=== PATIENT | male | born 1940 | race Caucasian/White ===

== ENCOUNTER → 2016-04-03 | Outpatient (CLI) | payer MEDICARE ==
[~2016-04-03] MED LIST: ALDACTONE25 MG PO; AMIODARONE HYD200 MG PO; APAP/HYDROCODON1 T46 PO; ASPIRIN81 MG PO; CEFTIN500 MG PO; COREG3.125 MG PO; COREG6.25 MG PO; Carafate1 GM PO; ELIGARD; ELIQUIS5 M1 PO; GLUCOPHAGE500 MG PO; GLYBURIDE5 MG PO; HUMULIN R100 U/ML; HUMULIN R100 U/ML SC; IMDUR SA60 M1 PO; K-POTASSIUM CH20 ME1 PO; KEFLEX 500 MG E2 CAP PO; LASIX20 MG PO; LEVEMIR100 U/ML SC; MAG-OX 400400 MG PO; MEGA MEN VITAMIN; METAMUCIL1 PDR PO; NOVOLOG10 ML SC; PLAVIX75 MG PO; PRILOSEC20 MG PO; Percocet 325 MG1 TAB PO; SIMVASTATIN20 MG PO; THERAGRAN1 TA2 PO; VICODIN 5/500 505 MG PO; ZESTRIL,PRINIVI10 MG PO
[2016-04-03 14:20] LABS: BASO % 0.6 % (0.0-1.0); EOS % 0.6 % (1.0-4.0); HEMATOCRIT 36.9 % (42.0-52.0); HEMOGLOBIN 11.4 g/dl (14.0-18.0); LYMPH # 1.3 10*3/uL (1.3-4.4); LYMPH % 19.9 % (27.0-41.0); MEAN CORPUSCULAR HGB 26.6 pg (27.0-31.0); MEAN CORPUSCULAR HGB CONC 30.9 g/dl (33.0-37.0); MEAN PLATELET VOLUME 10.7 fl (9.6-12.3); MONO # 0.4 10*3/uL (0.1-1.0); MONO % 5.4 % (3.0-9.0); NEUT # 4.8 10*3/uL (2.3-7.9); NEUT % 72.9 % (47.0-73.0); PLATELET COUNT AUTOMATED 156 10*3/uL (130-400); RED BLOOD COUNT 4.29 10*6/uL (4.50-5.90); RED CELL DISTRI WIDTH 15.1 % (0-14.5); WHITE BLOOD COUNT 6.6 10*3/uL (4.8-10.8)
[2016-04-03 14:35] LABS: ALBUMIN 3.5 gm/dl (3.1-4.5); BILIRUBIN, TOTAL 0.4 mg/dl (0.2-1.0); POTASSIUM 4.8 mmol/L (3.5-5.1); TOTAL PROTEIN 7.7 gm/dL (6.4-8.2)
== END | disposition home or self-care (01) ==
LOC: LAB 13:33 → RAD 13:33
PROVIDERS: Nurse Practitioner
DX: M54.5 Low back pain (principal)

== ENCOUNTER → 2016-04-20 | Outpatient (CLI) | payer MEDICARE | END | disposition home or self-care (01) | LOC: RAD 12:22 | DX: M54.5 Low back pain (principal) ==

== ENCOUNTER 2016-08-30 00:49 | Emergency (ER) | payer MEDICARE ==
[~2016-08-30] VITALS: Ht 172.7 cm; Wt 67.6 kg
[2016-08-30] MEDS ORDERED: COLACE100 MG PO (01:05)
[2016-08-30] MEDS ORDERED: LASIX20 MG PO (01:09)
[2016-08-30] MEDS ORDERED: LIPITOR40 MG PO (01:12)
[2016-08-30] MEDS ORDERED: METFORMIN500 MG PO (01:14)
[2016-08-30] MEDS ORDERED: BENADRYL25 M2 PO (01:15)
[2016-08-30 01:25] LABS: BASO % 0.4 % (0.0-1.0); EOS % 0.6 % (1.0-4.0); HEMATOCRIT 35.6 % (42.0-52.0); HEMOGLOBIN 11.7 g/dl (14.0-18.0); LYMPH % 19.2 % (27.0-41.0); MEAN CELL VOLUME 84.6 fl (80.0-94.0); MEAN CORPUSCULAR HGB 27.8 pg (27.0-31.0); MEAN CORPUSCULAR HGB CONC 32.9 g/dl (33.0-37.0); MONO # 0.4 10*3/uL (0.1-1.0); MONO % 7.8 % (3.0-9.0); NEUT # 3.7 10*3/uL (2.3-7.9); NEUT % 71.6 % (47.0-73.0); PLATELET COUNT AUTOMATED 129 10*3/uL (130-400); RED BLOOD COUNT 4.21 10*6/uL (4.50-5.90); RED CELL DISTRI WIDTH 14.2 % (0-14.5); WHITE BLOOD COUNT 5.1 10*3/uL (4.8-10.8)
[2016-08-30 01:40] LABS: ALBUMIN 3.5 gm/dl (3.1-4.5); BILIRUBIN, TOTAL 0.4 mg/dl (0.2-1.0); POTASSIUM 4.9 mmol/L (3.5-5.1); TOTAL PROTEIN 7.8 gm/dL (6.4-8.2)
[2016-08-30 04:54] VITALS: BP 121/60
[2016-08-30 06:32] LABS: POTASSIUM 4.3 mmol/L (3.5-5.1)
== END 2016-08-30 07:27 | disposition home or self-care (01) ==
LOC: ED 00:49
PROVIDERS: Emergency Medicine
DX: R73.9 Hyperglycemia, unspecified (principal); E86.0 Dehydration; N28.9 Disorder of kidney and ureter, unspecified; I25.10 Atherosclerotic heart disease of native coronary artery without angina pectoris; K21.9 Gastro-esophageal reflux disease without esophagitis; I25.2 Old myocardial infarction; E11.65 Type 2 diabetes mellitus with hyperglycemia; I10 Essential (primary) hypertension; I25.5 Ischemic cardiomyopathy; I50.21 Acute systolic (congestive) heart failure; Z79.899 Other long term (current) drug therapy; Z85.46 Personal history of malignant neoplasm of prostate; Z79.82 Long term (current) use of aspirin; Z86.718 Personal history of other venous thrombosis and embolism

== ENCOUNTER 2016-12-05 20:26 | Emergency (ER) | payer MEDICARE ==
[~2016-12-05] VITALS: Ht 167.6 cm; Wt 67.6 kg
[~2016-12-05 20:26] MED LIST changes: +BENADRYL25 M2 PO; +COLACE100 MG PO; +LIPITOR40 MG PO; +METFORMIN500 MG PO
[2016-12-05 21:20] LABS: BASO % 0.3 % (0.0-1.0); HEMATOCRIT 36.5 % (42.0-52.0); HEMOGLOBIN 11.5 g/dl (14.0-18.0); LYMPH # 1.3 10*3/uL (1.3-4.4); LYMPH % 11.9 % (27.0-41.0); MEAN CELL VOLUME 87.7 fl (80.0-94.0); MEAN CORPUSCULAR HGB 27.6 pg (27.0-31.0); MEAN CORPUSCULAR HGB CONC 31.5 g/dl (33.0-37.0); MEAN PLATELET VOLUME 10.6 fl (9.6-12.3); MONO # 0.5 10*3/uL (0.1-1.0); MONO % 4.5 % (3.0-9.0); NEUT # 8.8 10*3/uL (2.3-7.9); NEUT % 82.5 % (47.0-73.0); PLATELET COUNT AUTOMATED 222 10*3/uL (130-400); RED BLOOD COUNT 4.16 10*6/uL (4.50-5.90); RED CELL DISTRI WIDTH 14.4 % (0-14.5); WHITE BLOOD COUNT 10.6 10*3/uL (4.8-10.8)
[2016-12-05 21:21] LABS: BILIRUBIN NEGATIVE (NEGATIVE); BLOOD NEGATIVE (NEGATIVE); CLARITY CLEAR (CLEAR); COLOR YELLOW (YELLOW); GLUCOSE 3+ (NEGATIVE); KETONE TRACE (NEGATIVE); LEUKO ESTERASE NEGATIVE (NEGATIVE); NITRITE NEGATIVE (NEGATIVE); PH 5.5 (5.0-9.0); UROBILINOGEN 0.2 E.U./dl (0.2-1.0)
[2016-12-05 21:33] LABS: ACT PARTIAL THROMBO TIME 20.6 SECONDS (20.8-31.5); INTERNATIONAL NORM RATIO 1.1 (2.0-3.5)
[2016-12-05 21:39] LABS: ALKALINE PHOSPHATASE 178 U/L (45-117); BUN 34 mg/dl (7-24); CHLORIDE 103 mmol/L (98-107); CREATININE 1.27 mg/dL (0.70-1.30); LIPASE 149 U/L (73-393); MAGNESIUM 1.4 mg/dL (1.5-2.1); POTASSIUM 4.2 mmol/L (3.5-5.1); SGOT/AST 13 IU/L (3-35); SGPT/ALT 14 U/L (12-78); SODIUM 139 mmol/L (136-145); TOTAL PROTEIN 7.7 gm/dL (6.4-8.2)
[2016-12-05 21:46] LABS: TROPONIN I 0.067 ng/ml (<0.045)
[2016-12-05 22:06] LABS: BACTERIA TRACE; WBC 0-2 wbc/hpf (0-5)
[2016-12-06 00:56] VITALS: BP 111/55
== END 2016-12-06 01:15 | disposition short-term general hospital (02) ==
LOC: ED 20:26
PROVIDERS: Emergency Medicine Emergency Medical Services
DX: I13.0 Hypertensive heart and chronic kidney disease with heart failure and stage 1 through stage 4 chronic kidney disease, or unspecified chronic kidney disease (principal); E11.22 Type 2 diabetes mellitus with diabetic chronic kidney disease; N18.2 Chronic kidney disease, stage 2 (mild); C79.2 Secondary malignant neoplasm of skin; I25.10 Atherosclerotic heart disease of native coronary artery without angina pectoris; K21.9 Gastro-esophageal reflux disease without esophagitis; I25.2 Old myocardial infarction; G93.89 Other specified disorders of brain; J18.0 Bronchopneumonia, unspecified organism; Z86.718 Personal history of other venous thrombosis and embolism; Z79.899 Other long term (current) drug therapy; Z79.82 Long term (current) use of aspirin; Z79.4 Long term (current) use of insulin